=== PATIENT | male | born 1990 | race Caucasian/White ===

== ENCOUNTER 2017-03-23 18:58 | Emergency (ER) | payer OTHER ==
[~2017-03-23] VITALS: Ht 177.8 cm; Wt 68.0 kg
[2017-03-23] MEDS ORDERED: BACITRACIN TOP OINT 1 UD PKG TOP ONE (22:15)
[2017-03-23 22:27] VITALS: BP 108/67
== END 2017-03-23 22:32 | disposition home or self-care (01) ==
LOC: ER 19:03
DX: S61.213A Laceration without foreign body of left middle finger without damage to nail, initial encounter (principal); W26.0XXA Contact with knife, initial encounter; Y93.89 Activity, other specified; Y99.8 Other external cause status; Y92.89 Other specified places as the place of occurrence of the external cause
CPT/HCPCS: 12001